=== PATIENT | female | born 1955 | race Caucasian/White ===

== ENCOUNTER 2025-03-30 16:52 | Emergency (ER) | payer MEDICARE, BC ==
[~2025-03-30] VITALS: Ht 154.9 cm; Wt 66.7 kg
[2025-03-30 17:50] LABS: PLATELET COUNT (AUTO) 228 K/uL (150-450); RED BLOOD CELL COUNT(AUTO) 4.69 MIL/uL (4.0-5.2); RED CELL DISTRIBUTION WIDTH 13.0 % (11.5-15.0); WHITE BLOOD COUNT (AUTO) 11.4 K/uL (4.3-11.0)
[2025-03-30 17:56] LABS: CALCIUM, SERUM 8.6 mg/dL (8.5-10.1); CREATININE 0.6 mg/dL (0.6-1.3); SODIUM SERUM 135 mmol/L (136-145); UREA NITROGEN, BLOOD 14 mg/dL (7-18)
[2025-03-30 18:14] LABS: NT-PRO BNP 50 pg/mL (0-125)
[2025-03-30] MEDS: PANTOPRAZOLE 80 MG in IV NS 0.9% 500 ML IV ONE ×2 (18:30→18:32)
[2025-03-30] MEDS ORDERED: dexaMETHasone SOD PHOSPHATE 1 ML ONE (18:35)
[2025-03-30] MEDS ORDERED: WATER FOR INJECTION,STERILE 20 ML ONE (18:35)
[2025-03-30] MEDS ORDERED: PANTOPRAZOLE 40 MG VIAL ONE (18:35)
[2025-03-30] MEDS: dexaMETHasone SOD PHOSPHATE 10 MG/ML VIAL IV ONE (18:40)
[2025-03-30] MEDS: PANTOPRAZOLE 40 MG VIAL INJ ONE (18:42)
[2025-03-30] MEDS ORDERED: DIPH25TA62 PO (19:34)
[2025-03-30] MEDS ORDERED: PRED20TA PO (19:34)
[2025-03-30 19:54] VITALS: BP 120/75; TEMP 98; O2SAT 97
== END 2025-03-30 20:21 | disposition home or self-care (01) ==
LOC: ER 16:57
DX: R07.9 Chest pain, unspecified (principal); T78.40XA Allergy, unspecified, initial encounter; R11.2 Nausea with vomiting, unspecified; R06.02 Shortness of breath; X58.XXXA Exposure to other specified factors, initial encounter
CPT/HCPCS: 99285; 96374; 71045; 93005; 85025; 80048; 36415; 84484 ×2; 83880; J1100; J2470